=== PATIENT | male | born 1955 | race Caucasian/White ===

== ENCOUNTER 2021-10-17 11:14 | Emergency (ER) | payer OTHER ==
[~2021-10-17] VITALS: Ht 188 cm; Wt 104.3 kg
[2021-10-17] MEDS ORDERED: GLYXAMBI 25 MG1 EACH PO (11:25)
[2021-10-17] MEDS ORDERED: GLIMEPIRIDE2 MG PO (11:25)
[2021-10-17] MEDS ORDERED: TOPROL XL25 M1 PO (11:25)
[2021-10-17] MEDS ORDERED: ACTOS30 MG PO (11:25)
[2021-10-17] MEDS ORDERED: CRESTOR5 MG PO (11:26)
[2021-10-17] MEDS ORDERED: METHOTREXATE2.5 MG PO (11:26)
[2021-10-17] MEDS ORDERED: ATACAND32 MG PO (11:26)
[2021-10-17] MEDS ORDERED: UROXATRAL10 MG PO (11:27)
[2021-10-17] MEDS ORDERED: FOLIC ACID0.8 M1 (11:27)
[2021-10-17] MEDS ORDERED: CHILDREN'S ASPI81 MG PO (11:27)
[2021-10-17] MEDS ORDERED: SULFASALAZINE500 M1 PO (11:27)
[2021-10-17] MEDS ORDERED: NORFLEX100MG PO (14:52)
[2021-10-17] MEDS ORDERED: KETO10TA2 PO (14:52)
[2021-10-17] MEDS ORDERED: PERCOCET 5-3251 EACH PO (15:02)
== END 2021-10-17 15:28 | disposition home or self-care (01) ==
LOC: ER 11:14
DX: M54.89 Other dorsalgia (principal); M25.552 Pain in left hip; E11.9 Type 2 diabetes mellitus without complications; Z79.84 Long term (current) use of oral hypoglycemic drugs; I10 Essential (primary) hypertension; M19.90 Unspecified osteoarthritis, unspecified site

== ENCOUNTER → 2022-11-24 | Emergency (ER) | payer OTHER ==
[~2022-11-24] VITALS: Ht 188 cm; Wt 103.0 kg
[~2022-11-24] MED LIST: ACTOS30 MG PO; ATACAND32 MG PO; CHILDREN'S ASPI81 MG PO; CRESTOR5 MG PO; FOLIC ACID0.8 M1; GLIMEPIRIDE2 MG PO; GLYXAMBI 25 MG1 EACH PO; KETO10TA2 PO; METHOTREXATE2.5 MG PO; NORFLEX100MG PO; PERCOCET 5-3251 EACH PO; SULFASALAZINE500 M1 PO; TOPROL XL25 M1 PO; UROXATRAL10 MG PO
== END | disposition home or self-care (01) ==
LOC: ER 15:17
DX: S79.811A Other specified injuries of right hip, initial encounter (principal); W18.30XA Fall on same level, unspecified, initial encounter; Y93.9 Activity, unspecified; Y92.018 Other place in single-family (private) house as the place of occurrence of the external cause; Y99.9 Unspecified external cause status; M54.50 Low back pain, unspecified; Z91.048 Other nonmedicinal substance allergy status